=== PATIENT | male | born 1960 | race Caucasian/White ===

== ENCOUNTER 2023-08-29 11:35 | Emergency (ER) | payer BC, SELFPAY ==
[2023-08-29 11:38] VITALS: BP 165/106
[2023-08-29 12:38] LABS: % Basophils 0.4 % (0-2); % Eosinophils 0.5 % (0-6); % Immature Granulocytes 0.3 % (0-0.5); % Lymphocytes 13.6 % (20.5-51.1); % Monocytes 9.5 % (1.7-9.3); % Neutrophils 75.7 % (42.2-75.2); Absolute Basophils 0.1 10^3/uL (0-0.2); Absolute Eosinophils 0.1 10^3/uL (0-0.7); Absolute Lymphocytes 1.7 10^3/uL (1.2-3.4); Absolute Monocytes 1.2 10^3/uL (0.1-0.6); Absolute Neutrophils 9.4 10^3/uL (1.4-6.5); Hematocrit 45.8 % (39.0-52.0); Hemoglobin 15.9 g/dL (13.0-18.0); Mean Corp Hgb Conc. 34.7 g/dL (33.0-37.0); Mean Corpuscular Hgb 30.2 pg (27.0-31.0); Mean Corpuscular Volume 86.9 fL (80.0-94.0); Mean Platelet Volume 9.3 fL (7.4-10.4); Nucleated Red Blood Cells % 0 % (-); Platelet Count 247 10^3/uL (130-400); Red Blood Cell Count 5.27 10^6/uL (4.70-6.10); Red Cell Dist. Width 12.3 % (11.5-14.5); White Blood Cell Count 12.5 10^3/uL (4.8-10.8)
[2023-08-29 12:50] LABS: ALT (SGPT) 18 U/L (0-50); AST (SGOT) 18 U/L (17-59); Albumin 4.1 g/dl (3.5-5.0); Alkaline Phosphatase 59 U/L (38-126); Blood Urea Nitrogen 10 mg/dl (9-20); Calcium 8.9 mg/dl (8.4-10.2); Carbon Dioxide 30 mmol/L (22-30); Chloride 101 mmol/L (98-107); Glucose 95 mg/dl (70-99); Lipase 71 U/L (23-300); Potassium 3.9 mmol/L (3.5-5.1); Sodium 134 mmol/L (135-145); Total Bilirubin 0.8 mg/dl (0.2-1.3); eGFR > 60.00
[2023-08-29] MEDS: NSS 1000 IV (12:53)
[2023-08-29] MEDS: TORADOL 30 MG IV (12:54)
[2023-08-29 14:18] VITALS: BP 149/93
[2023-08-29 14:24] LABS: Urine Albumin Trace (Neg - Trace); Urine Bilirubin Negative (Negative); Urine Character Clear (Clear); Urine Color Yellow; Urine Glucose Negative (Negative); Urine Ketone Negative (Negative); Urine Leukocyte Negative (Negative); Urine Nitrite Negative (Negative); Urine Occult Blood Negative (Negative); Urine Urobilinogen 1+ (Neg - 1+)
--- NOTE | 2023-08-29 14:59 | ED.GENMED ---
History of Present Illness
General
Chief Complaint: Abdominal Symptoms
Source: patient
Exam Limitations: none
Time Seen by Provider: 08/29/23 12:06
Nursing documentation reviewed up to this point in time: agreed with
Travel History
Have you had any contact with someone who has COVID-19?: No
Do you have any symptoms of coronavirus? Fever > 100 degrees, chills, cough, shortness of breath, sore throat, loss of taste or smell, muscle aches, or headache?: No
History of Present Illness
History of Present Illness:
62-year-old male with Daniel history of hypertension presenting to the emergency department today with concerns of abdominal pain mainly to the left lower quadrant with associated nausea no vomiting no diarrhea no fevers no chest pain or shortness
of breath. Denies any similar symptoms in the past.
Review of Systems
Review of Systems
Allergies reviewed?: Yes
All Other Systems: ROS reviewed and negative except as documented in HPI and ROS
Phy Exam
Physical Exam
Physical Exam:
GENERAL: Alert , in no apparent distress
EYE: pupils equal and reactive
NECK: Supple, no significant adenopathy.
ENT: o/p clr, mmm.
CARDIAC: Regular rate and rhythm .
LUNGS: Clear breath sounds bilaterally, no acute respiratory distress, no wheezes/rales/rhonchi
ABDOMEN: Left lower quadrant abdominal pain otherwise soft benign abdomen.
NEUROLOGICAL: Alert and oriented, no focal neuro deficits
SKIN: Warm and dry, skin intact.
MUSCULOSKELETAL: No edema, well perfused.
PSYCH: Normal and appropriate interaction.
Left lower quadrant abdominal pain
Course
Orders/Labs/Results
Orders:
Orders
08/29/23 12:28
IV Insert/Care/Rem.- Treatment PRN
08/29/23 12:30
Complete Blood Count/With Diff Urgent
Comprehensive Metabolic Panel Urgent
Lipase Urgent
08/29/23 12:47
CT Abd/Pel (IV only)-DH only Urgent
Comment:
Reason For Exam: llq pain
0.9% Sodium Chloride 1000 ml [Nss] 1,000 ml IV BOLUS
Ketorolac [Toradol] 30 mg IV NOW STA
08/29/23 14:10
Urinalysis Reflex To Culture Urgent
Date Specimen was Collected: 08/29/23
Time Specimen was Collected: 14:09
08/29/23 14:59
Amoxicillin 875 mg/Clav 125 mg [Augmentin 875 mg/125 mg] 1 tablet PO NOW STA
Abnormal Lab Results
08/29/23
12:30
WBC 12.5 H 10^3/uL
(4.8-10.8)
Absolute Neuts (auto) 9.4 H 10^3/uL
(1.4-6.5)
Absolute Monos (auto) 1.2 H 10^3/uL
(0.1-0.6)
Neutrophils % 75.7 H %
(42.2-75.2)
Lymphocytes % 13.6 L %
(20.5-51.1)
Monocytes % 9.5 H %
(1.7-9.3)
Sodium 134 L mmol/L
(135-145)
08/29/23 12:30
08/29/23 12:30
Vital Signs
Initial and Last Documented VS:
Initial Vital Signs
Temp Pulse Resp BP Pulse Ox
98.6 F 83 16 165/106 98
08/29/23 11:38 08/29/23 11:38 08/29/23 11:38 08/29/23 11:38 08/29/23 11:38
Last Documented Vital Signs
Temp Pulse Resp BP Pulse Ox
98.6 F 71 18 149/93 97
08/29/23 11:38 08/29/23 14:18 08/29/23 14:18 08/29/23 14:18 08/29/23 14:18
MDM/Problems Addressed
MDM/Problems Addressed:
62-year-old male presenting to the emergency department today with concerns of left lower quad abdominal pain worsening over the past few days. Reproducible pain here CT scan confirming diverticulitis. No signs of complication plan to treat with
Augmentin twice daily of the neck 7 days and close primary care follow-up. Also incidental finding of pulmonary sequestration was explained to the patient and will follow-up closely as an outpatient for further imaging and assessment of this.
Return precautions given.
*Critical Care Note
Total Time (30-74mins, 75-104mins- exclusive of procedures): Not Applicable
ED Attending Note
-
Portions of this chart may have been created with voice recognition software.� Occasional wrong word or��sound alike� substitutions may have occurred due to the inherent limitations of voice recognition software.
Discharge Plan
Departure
Patient Disposition: Home (Routine Discharge)
Date of Disposition: 08/29/23
Time of Disposition: 15:19
Patient with high blood pressure during this ER visit?: No
Condition: Good
Covid-19: Not Applicable
Discharge Problem:
Diverticulitis, Pulmonary sequestration
Instructions: Diverticulitis (DC)
Prescriptions:
New
amoxicillin-pot clavulanate 875-125 mg tablet
1 tab PO BID 7 Days Qty: 14 0RF
Referrals:
iNgel Drake MD [Family Provider] -
Oliver Aranda MD [Active] - Follow up in 5-7 days
Activity Restrictions/Additional Instructions:
You came to the emergency department today with concerns of abdominal discomfort. You are found to have diverticulitis. Please take Augmentin twice daily and Motrin over the next few days to help with symptoms. Please follow close with your
primary care doctor for reassessment which with this is improving properly and also to follow-up on your incidental finding on your CT scan. Return to the emergency department for any worsening, new or concerning symptoms.
Interventions
Interventions:
*Risk Screen - Suicide Last Done: 08/29/23 12:34
*General Assessment Last Done: 08/29/23 12:27
*Neglect/Abuse Screening Last Done: 08/29/23 12:34
ED- Fall Risk Assessment Last Done: 08/29/23 12:28
*ED COVID-19 Vaccine History Last Done: 08/29/23 11:38
YV-Fxlbft-Xzdpzjuslb Assessment Last Done: 08/29/23 12:27
[2023-08-29] MEDS: AUGMENTIN 875 MG/125 MG 1 TABLET PO (15:22)
== END 2023-08-29 15:39 | disposition home or self-care (01) ==
LOC: EMR 11:35
PROVIDERS: Physician Assistant; EMERGENCY PHYSICIAN Emergency Medicine; FAMILY PHYSICIAN Internal Medicine
DX: K57.32 Diverticulitis of large intestine without perforation or abscess without bleeding (principal); Q33.2 Sequestration of lung
CPT/HCPCS: 99284; 96374; 96361; 74177; 80053; 81003; 83690; 85025; Q9967

== ENCOUNTER → 2023-10-02 12:08 | Outpatient (REF) | payer BC, SELFPAY | LOC: HWRAD 12:08 | PROVIDERS: ATTENDING PHYSICIAN Internal Medicine Critical Care Medicine; FAMILY PHYSICIAN Internal Medicine | DX: R93.89 Abnormal findings on diagnostic imaging of other specified body structures (principal); Q33.2 Sequestration of lung | CPT/HCPCS: 71260; Q9967 ==

== ENCOUNTER 2025-06-21 11:23 | Emergency (ER) | payer BC, SELFPAY ==
[2025-06-21 11:36] VITALS: BP 172/98
--- NOTE | 2025-06-21 13:33 | ED.GENMED ---
History of Present Illness
<Anna Boss MD, Resident - Last Filed: 06/21/25 13:45>
General
Chief Complaint: Skin Problem
Source: patient
Time Seen by Provider: 06/21/25 13:16
History of Present Illness
History of Present Illness:
Patient is a 64-year-old male , Right-handed who is here for evaluation of swelling on his left elbow
He had the swelling for last 3 weeks, does not remember how he incurred the injury. 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 He went to urgent care who
diagnosed it with bursitis and prescribed him ibuprofen and prednisone. The redness and pain improved but the swelling is still there and that is why he came to the ER for further evaluation.
In the ER, he is calm and comfortable, mentions minimal tenderness over the elbow, have not tried ice/heat or antibiotics.
Past History
<Anna Boss MD, Resident - Last Filed: 06/21/25 13:45>
Past History
ED Past Medical History: None
ED Past Surgical History: None
Social History
Tobacco: Non-smoker
Alcohol: Occasional
Drug: None
Personal:
Living: with family
Employment: Employed
Review of Systems
<Anna Boss MD, Resident - Last Filed: 06/21/25 13:45>
Review of Systems
All Other Systems: ROS reviewed and negative except as documented in HPI and ROS
Phy Exam
<Anna Boss MD, Resident - Last Filed: 06/21/25 13:45>
General Physical Exam
General Presentation: well appearing and no apparent distress
General age: appears stated age
General Skin: warm and dry
General Mental: alert
General Hydration: appears well hydrated
Cardiovascular Exam
Cardiovascular Exam: regular rate/rhythm, no edema, no gallop and normal peripheral pulses
Pulmonary Exam
Pulmonary Exam: lungs clear and no respiratory distress
Gastrointestinal Exam
Gastrointestinal Exam: normal bowel sounds, non tender and soft
Neurological Exam
Neurological Exam: alert and oriented x3
Musculoskeletal Exam
Musculoskeletal Exam: full ROM and other (About 2 to 3 cm, localized swelling at the level of olecranon process, slightly pink in color, slightly warmer as compared to the right side, palpable peripheral pulses with no limitation to movement.
Nontender)
Skin Exam
Skin Exam: normal color
Course
<Anna Boss MD, Resident - Last Filed: 06/21/25 13:45>
Orders/Labs/Results
Orders:
Orders
06/21/25 13:33
Cephalexin Monohydrate [Keflex] 500 mg PO NOW STA
Vital Signs
Initial and Last Documented VS:
Initial Vital Signs
Temp Pulse Resp BP Pulse Ox
98.1 F 80 16 172/98 98
06/21/25 11:36 06/21/25 11:36 06/21/25 11:36 06/21/25 11:36 06/21/25 11:36
Last Documented Vital Signs
Temp Pulse Resp BP Pulse Ox
98.1 F 80 16 172/98 98
06/21/25 11:36 06/21/25 11:36 06/21/25 11:36 06/21/25 11:36 06/21/25 13:34
<Jacinto Schwarz DO - Last Filed: 06/21/25 14:36>
Orders/Labs/Results
Orders:
Orders
06/21/25 13:33
Cephalexin Monohydrate [Keflex] 500 mg PO NOW STA
Vital Signs
Initial and Last Documented VS:
Initial Vital Signs
Temp Pulse Resp BP Pulse Ox
98.1 F 80 16 172/98 98
06/21/25 11:36 06/21/25 11:36 06/21/25 11:36 06/21/25 11:36 06/21/25 11:36
Last Documented Vital Signs
Temp Pulse Resp BP Pulse Ox
98.1 F 80 16 172/98 98
06/21/25 11:36 06/21/25 11:36 06/21/25 11:36 06/21/25 11:36 06/21/25 13:34
<Anna Boss MD, Resident - Last Filed: 06/21/25 13:45>
MDM/Problems Addressed
Differential Diagnosis Includes:
Olecranon bursitis
Lipoma
MDM/Problems Addressed:
Exam is reassuring
Plan to start short course of antibiotic, providing first dose in the ER
Reassure and discharge the patient with follow-up on outpatient basis
Advised to follow-up with Ortho
Advised to come to the ER for any worrisome/concerning signs
<Anna Boss MD, Resident - Last Filed: 06/21/25 13:45>
*Pulse Oximetry
SaO2: 98
Oxygen Mode of Delivery: Room air
Patient hypoxic: no
*Critical Care Note
Total Time (30-74mins, 75-104mins- exclusive of procedures): Not Applicable
ED Attending Note
<Anna Boss MD, Resident - Last Filed: 06/21/25 13:45>
-
Portions of this chart may have been created with voice recognition software.� Occasional wrong word or��sound alike� substitutions may have occurred due to the inherent limitations of voice recognition software.
<aJcinto Schwarz DO - Last Filed: 06/21/25 14:36>
ED Attending Note
Patient seen and examined by attending physician: Yes
I performed the substantive portion of visit, reviewed & personally made and approve the management plan that is documented in note by myself or MIK.: Yes
I performed a history and physical exam of patient and discussed management with resident, I reviewed resident's note and agree with documented findings and plan of care.: Yes
ED Attending Note:
64-year-old male presents to the ER for evaluation of persistent left elbow swelling for the last 3 weeks. Patient works construction. He denies any direct injury or trauma. He been seen at urgent care 3 weeks ago and started and was placed on
steroids and NSAIDs. Patient present bedside reports that it was very red and more swollen prior to the steroid treatment. It has still been swollen prompting visit to the ER today. No reported fevers. Vital signs reviewed, patient is
awake, alert, appears no acute distress, left upper extremity examination reveals localized swelling over the olecranon bursa, no joint effusion, no limitation active range of motion at the shoulder, elbow or wrist, no proximal streaking, skin is
dry and cracked overlying the surface of the olecranon which has increased warmth in comparison to right elbow, no distal edema, 2+ radial pulse present to the left hand, brisk cap refill present to the fingers. I discussed with patient diagnosis
of olecranon bursitis. I discussed with him need to use emollient lotions and course of antibiotics to initiate today. I also discussed with him benefit of follow-up with orthopedics for reevaluation and definitive care. He and his expressed
understanding of discharge plan and has no questions at the current time
Discharge Plan
Departure
Patient Disposition: Home (Routine Discharge)
Date of Disposition: 06/21/25
Time of Disposition: 13:41
Patient with high blood pressure during this ER visit?: No
Discharge Problem:
Olecranon bursitis of left elbow
Instructions: Bursitis - ED (DC)
Prescriptions:
New
cephalexin 500 mg capsule
500 mg PO BID 7 Days Qty: 14 0RF
No Action
amoxicillin-pot clavulanate 875-125 mg tablet
1 tab PO BID 7 Days Qty: 14 0RF
Referrals:
Behzad Morrissey MD [Active, Orthopedics] - Next open appointment
Interventions
Interventions:
*Risk Screen - Suicide Last Done: 06/21/25 11:36
*General Assessment Last Done: 06/21/25 11:36
*Neglect/Abuse Screening Last Done: 06/21/25 11:36
*ED COVID-19 Vaccine History Last Done: 06/21/25 11:36
*ED Influenza Vaccine History Last Done: 06/21/25 11:36
*Nursing Disposition Last Done: 06/21/25 13:48
Discharge Date and Time
Discharge Date/Time: 06/21/25 13:48
Print Language: BOLIVIAN
[2025-06-21] MEDS: KEFLEX 500 MG PO (13:36)
== END 2025-06-21 13:48 | disposition home or self-care (01) ==
LOC: EMR 11:23
PROVIDERS: EMERGENCY PHYSICIAN Emergency Medicine
DX: M70.22 Olecranon bursitis, left elbow (principal)
CPT/HCPCS: 99283